=== PATIENT | female | born 1955 | race Caucasian/White ===

== ENCOUNTER → 2017-03-20 | Outpatient (CLI) | payer BC ==
[~2017-03-20] MED LIST: CALC500C70 PO; ESCI10TA17 PO; MULTTAB PO; VITAMIN B-12 PO; [UNRECOGNIZED DRUG - OTHER] PO
--- NOTE | 2017-03-20 08:34 | DIAGNOSTIC IMAGING REPORT ---
LEFT FOOT MIN 3 VIEWS CLINICAL HISTORY: Left foot pain. History of trauma. COMPARISON: None. DISCUSSION: There is a healing fracture involving the proximal phalanx of the fourth toe. There is no dislocation. No additional fractures are visualized. IMPRESSION: Healing nondisplaced fracture involving the proximal phalanx of the fourth toe. Electronically signed by: Milo Tavarez M.D. 03/20/2017 8:33 AM Dictated Date/Time: 03/20/2017 8:32 AM
== END | disposition home or self-care (01) ==
LOC: C.RDSM 08:15
PROVIDERS: ATTEND Family Medicine
DX: M65.341 Trigger finger, right ring finger (principal); M79.672 Pain in left foot

== ENCOUNTER → 2017-03-31 | Outpatient (CLI) | payer BC ==
--- NOTE | 2017-04-01 13:06 | MAMMOGRAPHY REPORT ---
BILATERAL DIGITAL SCREENING MAMMOGRAM TOMOSYNTHESIS WITH CAD: 03/31/2017 CLINICAL HISTORY: Routine screening. Patient has no complaints. TECHNIQUE: Breast tomosynthesis in addition to standard 2D mammography was performed. Current study was also evaluated with a Computer Aided Detection (CAD) system. COMPARISON: Comparison is made to exams dated: 03/27/2016 mammogram, 03/23/2015 mammogram, 03/20/2014 m ammogram, 03/16/2013 mammogram, 03/15/2012 mammogram, and 03/12/2011 mammogram - [facility] [address]ter. BREAST COMPOSITION: The tissue of both breasts is almost entirely fatty. FINDINGS: No suspicious mass, architectural distortion or cluster of suspicious microcalcifications is seen. IMPRESSION: ACR BI-RADS CATEGORY 1: NEGATIVE There is no mammographic evidence of malignancy. A 1 year screening mammogram is recommended. The pa tient will receive written notification of the results. Approximately 10% of breast cancers are not detected with mammography. A negative mammographic report should not delay biopsy if a clinically suggestive mass is present. Kavya Rousseau M.D. ay/:03/31/2017 16:39:18 [employer] Course Designer: Jerica Fuentes RT(R)(M), [facility] letter sent: Normal 1/2 BI-RADS Code: ACR BI-RADS Category 1: Negative
== END | disposition home or self-care (01) ==
LOC: C.MAMM 07:11
PROVIDERS: ATTEND Family Medicine
DX: Z12.31 Encounter for screening mammogram for malignant neoplasm of breast (principal)